=== PATIENT | male | born 1985 | race Caucasian/White ===

== ENCOUNTER 2019-12-02 08:00 | Outpatient (CLI) | payer MEDICAID ==
[2019-12-02 18:34] LABS: BASOPHILS % (AUTO) 0.3 %; EOSINOPHILS # (AUTO) 0.2 10^3/uL (0.0-0.7); EOSINOPHILS % (AUTO) 2.5 %; LYMPHOCYTES # (AUTO) 2.2 10^3/uL (1.5-3.5); MEAN CORPUSCULAR HEMOGLOBIN 30.4 pg (27.0-31.0); MEAN CORPUSCULAR HGB CONC 33.9 g/dL (32.0-36.0); MEAN CORPUSCULAR VOLUME 89.5 fL (80.0-94.0); MEAN PLATELET VOLUME 9.3 fL (7.4-11.4); MONOCYTES # (AUTO) 0.6 10^3/uL (0.0-1.0); MONOCYTES % (AUTO) 9.3 %; NEUTROPHILS # (AUTO) 2.9 10^3/uL (1.5-6.6); NEUTROPHILS % (AUTO) 49.7 %; PLT - PLATELET COUNT 180 10^3/uL (130-450); RED BLOOD COUNT 4.94 10^6/uL (4.70-6.10); RED CELL DISTRIBUTION WIDTH 12.8 % (12.0-15.0); WHITE BLOOD COUNT 5.9 x10^3/uL (4.8-10.8)
[2019-12-02 18:53] LABS: ALBUMIN 4.7 g/dL (3.2-5.5); ALBUMIN/GLOBULIN RATIO 1.6 (1.0-2.2); ALKALINE PHOSPHATASE 60 IU/L (42-121); ALT ALANINE AMINOTRANSFERASE 110 IU/L (10-60); AST ASPARTATE AMINOTRANSFERASE 51 IU/L (10-42); BILIRUBIN,TOTAL 0.8 mg/dL (0.2-1.0); BUN - BLOOD UREA NITROGEN 17 mg/dL (6-20); CALCIUM 9.2 mg/dL (8.5-10.3); CARBON DIOXIDE - CO2 28 mmol/L (21-32); CHLORIDE 103 mmol/L (101-111); CHOL/HDL RATIO 6.3 (<5.0); CHOLESTEROL 201 mg/dL; GLUCOSE 89 mg/dL (70-100); HDL CHOLESTEROL 32 mg/dL; LDL CHOLESTEROL,CALCULATED 132 mg/dL; LDL/HDL RATIO 4.1 (<3.6); SODIUM 137 mmol/L (135-145); TOTAL PROTEIN 7.7 g/dL (6.7-8.2); VLDL CHOLESTEROL 37 mg/dL
== END 2019-12-02 23:59 | disposition home or self-care (01) ==
LOC: LAB.WCP 08:00
PROVIDERS: ATTEND Nurse Practitioner
DX: Z00.00 Encounter for general adult medical examination without abnormal findings (principal); Z13.228 Encounter for screening for other metabolic disorders; Z13.220 Encounter for screening for lipoid disorders
CPT/HCPCS: 36415; 80053; 80061; 83721; 84443; 85025

== ENCOUNTER 2020-02-19 06:44 | Outpatient (CLI) | payer MEDICAID ==
--- NOTE | 2020-02-19 09:02 | Ultrasound Report ---
PROCEDURE: Abdomen Limited INDICATIONS: FATTY INFILTRATION OF THE LIVER TECHNIQUE: Real-time focused scanning was performed of the abdomen, with image documentation. COMPARISON: None FINDINGS: The liver is normal size measuring 15.9 cm in length. The parenchyma is diffusely homogene ously hyperechoic. No discrete mass or biliary dilatation. The extrahepatic common duct is 6.2 mm. Th e gallbladder is surgically absent. The right kidney is normal in morphology measuring 2.1 cm in length without hydronephrosis. There is no free fluid in Morison's pouch. IMPRESSION: 1. Normal size liver with hyperechoic echotexture consistent with fatty infiltration versus other int rinsic liver disease. 2. Post cholecystectomy without significant biliary dilatation. Reviewed by: Dalila Gong MD on 02/19/2020 9:00 AM PST Approved by: Dalila Gong MD on 02/19/2020 9:00 AM PST Station ID: [id number]
== END 2020-02-19 06:45 | disposition home or self-care (01) ==
LOC: DI 06:44
PROVIDERS: ATTEND Nurse Practitioner
DX: R93.2 Abnormal findings on diagnostic imaging of liver and biliary tract (principal); Z90.49 Acquired absence of other specified parts of digestive tract
CPT/HCPCS: 76705

== ENCOUNTER 2020-02-19 10:19 | Outpatient (CLI) | payer MEDICAID ==
[2020-02-19 11:15] VITALS: BP 128/80
--- NOTE | 2020-02-19 11:15 | SLEEP CARE CONSULTATION ---
Information from patient questionnaire entered by Priscila Pyle. I have reviewed and concur with the information entered by Priscila Pyle. This document represents the service I personally performed and the decisions made by me, Iraida Stapleton ARNP. History of Present Illness Service Date and Time: 02/19/2020 1019 Reason for Visit: New patient, Previously diagnosed sleep apnea, sleep apnea on CPAP therapy ([facility]) Chief Complaint: reports: Unrefreshed sleep, Snoring, Excessive daytime sleepiness, Observed pauses in breathing, Fatigue. denies: Insomnia, Frequent awakenings at night Date of Onset: at least 3 years Usual bedtime: 12 am Time it takes to fall asleep: not long, maybe 5 minutes Snores at night: Yes Observed to quit breathing while asleep: Yes Sleeps alone due to snoring: No (but she doesn't sleep well) Number of times waking at night: varies Reasons for waking at night: reports: Snoring, Bathroom. denies: Choking, Gasping for air Toss, Turn, or Twitch while sleeping: Yes Recalls having dreams: No Usually gets out of bed at: 7 am Feels refreshed in the morning: No Morning headache: Yes Sleepy or fatigued during the day: Yes Ever fallen asleep while driving: Yes Dreams during day naps: No Prior sleep studies: Yes Year and Where: 2019 - [place], [place] Additional HPI information: I had the pleasure of seeing RADHA MCKENNA today regarding the possibility of him having a sleep disorder. His current complaints are snoring, pauses in breathing, excessive daytime sleepiness, fatigue and unrefreshed sleep. He was previously diagnosed with sleep apnea but we do not have a copy of his last sleep study completed in [place] in 2018. - Parasomnia Symptoms Ever been unable to move upon waking from sleep: No Walks in sleep: No Talks in sleep: Yes Ever acted out dreams in sleep: No Ever felt weak in the knees when startled or emotional: No Bothered by creepy, crawly, restless sensations in legs: No Problems with memory or concentration: Yes CPAP Compliance Data - Data Reviewed with Patient Average duration of nightly device use: 4 hr 50 min Compliance rate %: 75.6 (180 days) Current pressure setting (cmH2O): 5-20 Humidity settin Heated hose settin Average residual AHI: 5.5 Average large leak: 6 min 5 sec Compliance data discussion: He is getting supplies from [facility] without issues in [place]. He is using a nasal Wisp-type mask. He does not have a backup mask but will keep old mask when replaced. He last changed mask in October/December. Subjective Patient concerns: reports: aerophagia (bloated and gassy in the mornings), air blowing in eyes (occasionally, mask adjustment helps), nasal congestion (regularly), dry mouth, nose, throat (dry mouth and throat). denies: mask discomfort, mask leak noise, condensation in mask/hose, epistaxis, other Observed to snore while using device: Yes (every night) Current pressure setting perceived as: too low On therapy, patient: reports: sleeping better, drowsiness while driving. denies: awakening more refreshed, being more awake and alert during the day, more rested overall Initial [place] Sleepiness Scale score: 18 (in 2019) Past Medical History Past Medical History: reports: Anxiety, Asthma, Depression. 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 Patient is and lives in [place]. Have you smoked in the past 12 months: No Quit date: 2004 Alcohol use: No Caffeine use: Yes Caffeine amount and frequency: 3-4 cups of caffienated sodas Family History Family history of sleep disordered breathing: No Family Hx Sleep Apnea: Mother: Snoring, Father: Snoring, Sibling: Snoring Allergies and Home Medications Drug allergies reviewed: Yes (Nsaids) Home medication list reviewed: Yes (no daily medications yet) Review of Systems Weight gain over past 5 years: 50 Cardiovascular: denies: high blood pressure Respiratory: reports: shortness of breath Gastrointestinal: reports: nausea. denies: heartburn, difficulty swallowing Urinary: denies: impotence Neurological: reports: headaches, head trauma (concussion 1 year ago). denies: seizure, speech dysfunction, gait or balance problems Psychiatric: reports: anxiety, depression Ear/Nose/Throat: reports: nasal congestion, sinus problems, dry mouth/throat, injury to nose (fracture 4 or 5 years ago), wisdom teeth removed. denies: nose bleeds, tonsillectomy Endocrine: reports: increased appetite Immunologic: denies: allergies to food or environment Physical Exam Blood Pressure: 128/80 Cuff size: long Heart Rate: 80 O2 Saturation: 96 Height: 6 ft 1 in Weight: 272 lb Body Mass Index: 35.9 BMI Classification: Obese Neck circumference: 18 (inches) Nostrils: patent to airflow Turbinates: swollen Septum: midline Mouth and throat: narrow oropharynx Uvula visualization: 50% Mallampati Class II Tongue: enlarged in size with teeth alegre on lateral edges Tonsils: 2+ Chin and jaw: normal size and position Neck: normal w/o lymphadenopathy or thyromegaly Heart: regular rate and rhythm Lungs: clear bilaterally Impression and Plan 1. Obstructive Sleep Apnea-Hypopnea Syndrome, unknown, with fair treatment compliance and fair apnea control with elevated AHI at 5.5. On CPAP therapy, the patient has better sleep quality but does not feel rested overall. He has been snoring when using the CPAP and is feeling more sleepy during the day. I will order a titration study to determine optimal pressure setting for his CPAP machine. In the meantime, I will adjust pressure setting to 10-14 cm H2O since he is have some aerophagia and snoring during CPAP use. Patient has problems with nasal congestion when using the CPAP. Nasal congestion can be reduced with increasing the CPAP humidity as shown on sample device. The heated hose can be adjusted higher if condensation with higher humidity setting. Saline nasal spray sample was also given to use prior to CPAP to clear nasal secretions and wash off any nasal allergens to facilitate nasal breathing. In addition, a steamy shower before bed will often assist nasal drainage. He voiced understanding and agreement with plan. Patient's apnea severity and rationale for treatment to reduce apnea, improve sleep quality and reduce cardiovascular and cerebrovascular events was reviewed. I also reviewed the benefit of consistent device use of CPAP for depression. * Titration study * Obtain last sleep study to verify diagnosis * Change auto CPAP pressure to 10-14 cmH2O * Notify me if snoring with mask or feeling that the pressure is too much or too little * Attempt to lose weight * Call this office if any problems using CPAP * Return for follow up after titration study completed or in 1-2 months, or sooner if concerns arise Counseling Topics: Spare mask, Weight loss health impact Time Spent with Patient (minutes): 40
== END 2020-02-19 10:20 | disposition home or self-care (01) ==
LOC: SC 10:19
PROVIDERS: ATTEND Nurse Practitioner Family
DX: E66.9 Obesity, unspecified (principal); Z68.35 Body mass index [BMI] 35.0-35.9, adult
CPT/HCPCS: 99203; 99212

== ENCOUNTER 2020-04-12 09:08 | Outpatient (CLI) | payer MEDICAID ==
--- NOTE | 2020-04-12 09:51 | SLEEP CARE CONSULTATION ---
Information from patient questionnaire entered by Priscila Pyle. I have reviewed and concur with the information entered by Priscila Pyle. This document represents the service I personally performed and the decisions made by me, Ilia Blood MD, [facility]. History of Present Illness Service Date and Time: 04/12/2020 0908 Previous diagnosis: Very Severe, Obstructive Sleep Apnea-Hypopnea Syndrome AHI: 77.5 (in 2018) Reason for follow up: other (6 week with pressure change) Equipment type: CPAP Equipment obtained from: Other ([facility]) Mask style: Nasal Prior sleep studies: Yes Year and Where: 2019 - [place] Type of Sleep Study: Home sleep study HPI additional information: HPI: Mr. Mckeon was called today to follow up on the nasal CPAP therapy. He was diagnosed to have very severe obstructive sleep apnea-hypopnea syndrome (AHI was 77.5 on a 2018 home sleep apnea test). The patient wears a [email or web address] Eson nasal mask but it is broken. [employer] is his durable medical supplier. He reports using the device nightly and all through the night. The compliance report shows usage in 30 nights out of the past 30 nights, averaging 4.5 hours a night. The > 4 hour compliance rate for the past 30 days is 100%. He complained of no particular problem with the device such as soreness on the face, dry nose, epistaxis, nasal congestion or headache. He thinks that the pressure of 10 14 cmH2O is comfortable (changed from 5 20 cmH2 O for elevated residual AHI of 5.5). On the CPAP therapy he notices improvement in his sleep quality, and that he wakes up feeling fresher in the morning and more awake/alert during the day. [place] Sleepiness Scale score is 16. His notices rare snore. The average residual AHI is 3.7 ; and average time in large leak per day is 21 minutes. The 90th percentile pressure is 12.4 cmH2O. CPAP Compliance Data - Data Reviewed with Patient Average duration of nightly device use: 4 hr 32 min Compliance rate %: 63.3 Current pressure setting (cmH2O): 10-14 Humidity settin Heated hose settin Average residual AHI: 3.7 Average large leak: 21 min 14 sec Subjective Missed days of use due to: reports: mask issues, other (falling asleep) Patient concerns: reports: aerophagia, mask discomfort, air blowing in eyes, mask leak noise, condensation in mask/hose, nasal congestion, dry mouth, nose, throat, other (snore while using device) Current pressure setting perceived as: comfortable Initial [place] Sleepiness Scale score: 18 (in 2020) Current [place] Sleepiness Scale score: 17 Allergies and Home Medications Drug allergies reviewed: Yes Home medication list reviewed: Yes Review of Systems Review of systems same as previous: Yes Physical Exam Vital signs obtained and entered by: To minimize the risk of COVID-19 exposure, detailed exam was not performed. Height: 6 ft 1 in Weight: 270 lb Body Mass Index: 35.6 BMI Classification: Obese Nasal exam: positive: erythema Impression and Plan IMPRESSION: 1. Obstructive Sleep Apnea-Hypopnea Syndrome, very severe, with the patient doing well on nasal CPAP therapy. He has excellent compliance and significant clinical improvement. The current pressure appears effective and comfortable. Overall, he is very satisfied with treatment and plans to continue with it long- term. No adjustment is necessary today. Because his mask is broken and he is not eligible for a new one until another 2 months, I will give him a sample mask from the sleep lab. PLAN: 1. Continue with autoCPAP set at 10 - 14 cmH2O. 2. Try to lose weight 3. A new [employer] Eson nasal mask size medium was given to him to use until he can get a replacement mask from his durable medical supplier [facility]. I personally fitted the mask. 4. Return in one year for follow up or earlier if there is any problem with the treatment. Visit Type: In Office Time Spent with Patient (minutes): 20 Provider Statement: I spent 100% of the Face to Face Visit with the patient with greater than 50% spent counseling the patient and coordination of care.
== END 2020-04-12 09:09 | disposition home or self-care (01) ==
LOC: SC 09:08
PROVIDERS: ATTEND Internal Medicine Pulmonary Disease
DX: G47.33 Obstructive sleep apnea (adult) (pediatric) (principal); E66.9 Obesity, unspecified; Z68.35 Body mass index [BMI] 35.0-35.9, adult
CPT/HCPCS: 99212; 99213

== ENCOUNTER 2020-05-12 08:22 | Outpatient (CLI) | payer MEDICAID ==
--- NOTE | 2020-05-12 09:04 | SLEEP CARE CONSULTATION ---
Information from patient questionnaire entered by Priscila Pyle. I have reviewed and concur with the information entered by Priscila Pyle. This document represents the service I personally performed and the decisions made by , Iraida Stapleton ARNP. History of Present Illness Service Date and Time: 05/12/2020821 Previous diagnosis: Very Severe, Obstructive Sleep Apnea-Hypopnea Syndrome AHI: 77.5 (in 2018) Reason for follow up: one month (dozing while driving) Equipment type: CPAP Equipment obtained from: Other ([facility]; getting supplies as needed) Mask style: Nasal (wisp type) Backup mask available: No (will need to keep old mask when replaced) Last cushion change: 1 month Prior sleep studies: Yes Year and Where: 2018 - [facility] Type of Sleep Study: Home sleep study HPI additional information: RADHA MCKENNA was diagnosed to have very severe, AHI 77.5, obstructive sleep apnea-hypopnea syndrome and returned today for CPAP therapy one month pressure change follow-up. CPAP Compliance Data - Data Reviewed with Patient Average duration of nightly device use: 5 hr 25 min Compliance rate %: 66.7 Current pressure setting (cmH2O): 10-14 Humidity settin Heated hose settin Average residual AHI: 3.7 Average large leak: 27 min 51 sec Subjective Missed days of use due to: reports: other (fall asleep) Patient concerns: reports: air blowing in eyes, mask leak noise, nasal congestion, dry mouth, nose, throat (dry nose), other (snore while using device, pressure in the mouth from excess air). denies: aerophagia, mask discomfort, condensation in mask/hose, epistaxis Observed to snore while using device: Yes (occasionally) Current pressure setting perceived as: comfortable On therapy, patient: reports: sleeping better, awakening more refreshed, being more awake and alert during the day, more rested overall, drowsiness while driving Initial [place] Sleepiness Scale score: 18 (in 2019) Current [place] Sleepiness Scale score: 18 Allergies and Home Medications Home medication list reviewed: Yes (Zofran due to food poisoning, prn) Review of Systems Review of systems same as previous: No (food poisoning on Sunday) Physical Exam Heart Rate: 66 O2 Saturation: 98 Height: 6 ft 1 in Weight: 273 lb Body Mass Index: 36.0 BMI Classification: Obese Impression and Plan 1. Obstructive Sleep Apnea-Hypopnea Syndrome, very severe, with fair treatment compliance and good apnea control. On CPAP therapy, the patient has better sleep quality and is more rested overall. Patient has had some increase in nasal congestion and nasal dryness. Nasal dryness and congestion can be reduced with increasing the CPAP humidity as shown on sample device and the heated hose can be increased if condensation. In addition, I gave the patient a few samples of Mo Ease nasal cream to be used 4 times a day for 7-10 days and then as needed. I advised him to reduce his tube temperature from 4 to 3 first before increasing the humidity. He has not felt that the pressure is too much but he has had some "extra" air escaping from his mouth. I will adjust pressure to 10-12 cmH2O since his maximum pressure in 12.1 and mean pressure at 10.7. I encouraged him to let me know if pressure feel too much or he gets aerophagia. He has been having more drowsy driving but he is averaging 5 hours and 25 minutes of sleep when using the machine. I advised him that we need 7-9 hours of restful sleep to feel adequately rested. I advised him to try to increase the time he gets sleeping by increasing his bed time by 15 minute increments until he gets up to at least 6 1/2 hours of sleep. He voiced understanding and agreement to plan of care. Patient's apnea severity and rationale for treatment to reduce apnea, improve sleep quality and reduce cardiovascular and cerebrovascular events was reviewed. I also reviewed the benefit of consistent device use of CPAP for depression, anxiety and asthma. * Change auto CPAP pressure to 10-12 cmH2O * Notify me if snoring with mask or feeling that the pressure is too much or too little * Attempt to lose weight * Call this office if any problems using CPAP * Return for follow up in 1-2 months, or sooner if concerns arise Counseling Topics: Spare mask, Weight loss health impact Visit Type: In Office Time Spent with Patient (minutes): 22 Provider Statement: I spent 100% of the Face to Face Visit with the patient with greater than 50% spent counseling the patient and coordination of care.
== END 2020-05-12 08:23 | disposition home or self-care (01) ==
LOC: SC 08:22
PROVIDERS: ATTEND Nurse Practitioner Family
DX: G47.33 Obstructive sleep apnea (adult) (pediatric) (principal); E66.9 Obesity, unspecified; Z68.36 Body mass index [BMI] 36.0-36.9, adult
CPT/HCPCS: 99212; 99213

== ENCOUNTER 2020-06-11 08:00 | Outpatient (CLI) | payer MEDICAID ==
--- NOTE | 2020-06-11 08:36 | SLEEP CARE CONSULTATION ---
Information from patient questionnaire entered by Priscila Pyle. I have reviewed and concur with the information entered by Priscila Pyle. This document represents the service I personally performed and the decisions made by , Iraida Stapleton ARNP. History of Present Illness Service Date and Time: 06/11/2020 0800 Previous diagnosis: Very Severe, Obstructive Sleep Apnea-Hypopnea Syndrome AHI: 77.5 (in 2018) Reason for follow up: one month (with pressure change) Equipment type: CPAP Equipment obtained from: Other ([facility]; getting supplies as needed) Mask style: Nasal (over the nose J2) Backup mask available: No (will be keeping old mask when replaced) Last cushion change: 5 + months Prior sleep studies: Yes Year and Where: 2018 - [facility] Type of Sleep Study: Home sleep study HPI additional information: RADHA MCKENNA was diagnosed to have very severe, AHI 77.5, obstructive sleep apnea-hypopnea syndrome and returned today for CPAP therapy one month pressure change follow-up. CPAP Compliance Data - Data Reviewed with Patient Average duration of nightly device use: 5 hours 21 minutes Compliance rate %: 76.7 Current pressure setting (cmH2O): 10-12 Humidity settin Heated hose settin Average residual AHI: 4.5 Central apnea: 1.3 Obstructive apnea: 1.7 Hypopnea: 1.5 Average large leak: 14 minutes 50 seconds Subjective Missed days of use due to: reports: other (fall asleep without mask on, but getting better now) Patient concerns: reports: air blowing in eyes, mask leak noise. denies: aerophagia, mask discomfort, condensation in mask/hose, nasal congestion, dry mouth, nose, throat, epistaxis, other Observed to snore while using device: No Current pressure setting perceived as: comfortable On therapy, patient: reports: sleeping better, awakening more refreshed, being more awake and alert during the day, more rested overall. denies: drowsiness while driving Initial [place] Sleepiness Scale score: 18 (in 2019) Current [place] Sleepiness Scale score: 16 Allergies and Home Medications Drug allergies reviewed: Yes (nsaid) Home medication list reviewed: Yes Allergy and home medication list: Alprazolam for sleep Metamucil Review of Systems Review of systems same as previous: No (med for sleep due to working nights) Physical Exam Heart Rate: 81 O2 Saturation: 97 Height: 6 ft 1 in Weight: 272 lb Body Mass Index: 35.9 BMI Classification: Obese Impression and Plan 1. Obstructive Sleep Apnea-Hypopnea Syndrome, very severe, with fair treatment compliance and fair apnea control. On CPAP therapy, the patient has better sleep quality and is more rested overall. He really likes the new pressure setting, it is comfortable. He started Alprazolam to help him get to sleep since he started working nights about a week ago prescribed by his PCP. He has noticed that he is sleeping better and not feeling as sleepy during the day. He was advised to try to increase time in bed to at least 6.5 hours to further improve his sleepiness. He voiced understanding. He has been getting more mask leaking into his eyes with some noise. He has not changed his mask in the last5-6 months. He is expecting a new shipment of supplies soon. Mask leaks can be reduced by washing mask daily and changing mask cushions more frequently to improve mask seal and comfort. He voiced agreement with plan of care. Patient's apnea severity and rationale for treatment to reduce apnea, improve sleep quality and reduce cardiovascular and cerebrovascular events was reviewed. I also reviewed the benefit of consistent device use of CPAP for depression, anxiety and asthma. * Continue auto CPAP pressure at 10-12 cmH2O * Notify me if snoring with mask or feeling that the pressure is too much or too little * Attempt to lose weight * Call this office if any problems using CPAP * Return for follow up in 3 months, or sooner if concerns arise Counseling Topics: Spare mask, Weight loss health impact Visit Type: In Office Time Spent with Patient (minutes): 16 Provider Statement: I spent 100% of the Face to Face Visit with the patient with greater than 50% spent counseling the patient and coordination of care.
== END 2020-06-11 08:01 | disposition home or self-care (01) ==
LOC: SC 08:00
PROVIDERS: ATTEND Nurse Practitioner Family
DX: G47.33 Obstructive sleep apnea (adult) (pediatric) (principal); E66.9 Obesity, unspecified; Z68.35 Body mass index [BMI] 35.0-35.9, adult
CPT/HCPCS: 99212